=== PATIENT | female | born 1985 | race African-American/Black ===

== ENCOUNTER 2016-10-19 12:00 | Inpatient (IN) | payer OTHER ==
--- NOTE | ~2016-10-19 | PN ---
Unit #: [id number] #: [id number] Patient: LEANN SCHWARTZ [id number] [facility] [address] [place] [address] [id number] MR#: [id number] NAME: LEANN SCHWARTZ ROOM: 30 Age: 31 Sex: F Admission Date: 10/19/2016 : 1985 Attending Physician: Gio Steve M.D. Admitting Physician: Gio Steve M.D. Primary Care Physician: Primary Care Physician Anum SHAFER PROGRESS NOTES DATE 10/22/2016 DISCUSSION Leann complains of night terrors and some irritability in her mood. She continues to have vague suicidal ideation. However, she is able to get up and attend groups on the unit and feels positive about her psychotherapy experience here. She is alert and fully oriented. Her memory and concentration are fair to good. Her racing thoughts have also decreased. ASSESSMENT 1. Bipolar, depressed. 2. PTSD. PLAN We will add prazosin 1 mg at bedtime for night terrors and provide larger portion entrees. Dictated by... Gio Steve M.D. [facility]/michael TD: 10/24/2016 22:52 JOB #: [id number] [facility] PROGRESS NOTES Page 1 of 1 X Gio Steve MD PROGRESS NOTE
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
--- NOTE | ~2016-10-19 | HP ---
Unit #: [id number] #: [id number] Patient: LEANN SCHWARTZ [id number] [place] [address] [id number] I MR#: [id number] NAME: LEANN SCHWARTZ ROOM: 30 Age: 31 Sex: F Admission Date: 10/19/2016 : 1985 Attending Physician: Gio Steve M.D. Admitting Physician: Gio Steve M.D. Primary Care Physician: Primary Care Physician No HISTORY AND PHYSICAL HISTORY OF PRESENT ILLNESS Leann is a 31 year old admitted to [address] [place] [address] with increased anxiety and anger issues. PAST MEDICAL HISTORY Nothing significant. PAST SURGICAL HISTORY Nothing reported. ALLERGIES No known drug allergies. SOCIAL HISTORY Smokes 1 pack per day. Drinks alcohol on occasion. Admits to using marijuana daily. FAMILY HISTORY Medically noncontributory. REVIEW OF SYSTEMS CONSTITUTIONAL: No fever or chills. HEENT: Denies any sore throat, ear pain or runny nose. CARDIOVASCULAR: Denies chest pain, irregular heart rhythm or palpitations. CHEST: Denies shortness of breath or cough. No hemoptysis. GASTROINTESTINAL: Denies nausea, vomiting, diarrhea or chronic constipation. ENDOCRINE: Denies history of increased thirst or urination. No recent significant weight loss or gain. GENITOURINARY: Denies dysuria, frequency, or hematuria. SKIN: Denies any rashes. HEMATOLOGIC: Denies history of increased bleeding or bruising. MUSCULOSKELETAL: Denies any hot, swollen joints. No generalized muscle pain. NEUROLOGIC: Denies problems with vision or speech. No frequent, severe headaches. No numbness, tingling or weakness in any extremities. Denies loss of bladder or bowel control. CURRENT MEDICATIONS 1. Seroquel 400 mg q.h.s. 2. Vistaril p.r.n. 3. Milk of Magnesia p.r.n. 4. Maalox p.r.n. Unit #: [id number] #: [id number] Patient: LEANN SCHWARTZ 5. Tylenol p.r.n. 6. Multivitamin 1 daily. 7. Zoloft 50 mg daily. 8. Nicotine patch 14 mg daily. PHYSICAL EXAMINATION GENERAL: Alert, well-nourished, in no apparent distress. VITAL SIGNS: Blood pressure 120/70, heart rate 88, respirations 16, temperature 98.6. WEIGHT: 150. HEIGHT: 4 feet 10 inches. SKIN: Warm and dry without rash or lesion. HEENT: Normocephalic. TMs not viewed. Oral and nasal passages clear. Conjunctivae clear. PERRLA. EOMs intact. NECK: Supple without lymphadenopathy or thyromegaly. HEART: Regular rate and rhythm without murmur. LUNGS: Clear. ABDOMEN: Soft, nontender. : Not done. EXTREMITIES: No evidence of cyanosis, clubbing or edema. Moves all without focal deficit. NEUROLOGICAL: Grossly within normal limits. Cranial Nerves: II: Visual benítez are intact. III, IV AND : Extraocular movements are intact. Pupils are equal, round and reactive to light. V: Facial sensation is grossly normal. VII: Facial movements and expression are normal. VIII: Auditory acuity grossly intact. IX, X: Uvula is midline. Phonation is normal. XI: Patient shrugs shoulders and turns head normally. XII: Tongue protrudes in the midline. Sensory and Motor Function: Sensory and motor sensation is grossly normal. Motor: moves all extremities well. Coordination: Gait is normal. Deep Tendon Reflexes: Intact. IMPRESSION Psychiatric admission. RECOMMENDATIONS PSYCHIATRIC: Per psychiatrist. MEDICAL: See no contraindications to participate in facility's activities. MEDICAL PROGNOSIS Good. MEDICAL CONDITION Stable. Dictated by... Eulalia Grimaldo P.A.-C. for [facility]/michael TD: 10/20/2016 16:15 JOB #: [id number] Unit #: [id number] #: [id number] Patient: LEANN SCHWARTZ HISTORY AND PHYSICAL Page 1 of 1 X Eulalia Grimaldo HISTORY AND PHYSICAL
--- NOTE | ~2016-10-19 | PN ---
Unit #: [id number] #: [id number] Patient: AGUSTIN SCHWARTZ [id number] [facility] [address] [place] [address] [id number] MR#: [id number] NAME: AGUSTIN SCHWARTZ ROOM: 30 Age: 31 Sex: F Admission Date: 10/19/2016 : 1985 Attending Physician: Gio Steve M.D. Admitting Physician: Gio Steve M.D. Primary Care Physician: Primary Care Physician Anum BATISTA NOTES DATE OF SERVICE: 10/21/2016 DISCUSSION Isabelle is compliant with medications. She complains of some sedation and says that she is deliberately isolating herself from peers and staff due to her irritability. Her mood remains irritable and depressed with a congruent affect. She is alert and fully oriented. Her memory and concentration are fair to good. Her thought processes were goal directed with no evidence of psychosis, although she does report ongoing nightmares related to posttraumatic symptoms. She continues to report suicidal ideation. ASSESSMENT Bipolar depressed, posttraumatic stress disorder. PLAN Continue current treatment plan and hospital precautions. Dictated by... Gio Steve M.D. [facility]/pooja TD: 10/23/2016 18:47 JOB #: [id number] [facility] PROGRESS NOTES Page 1 of 1 X Gio Steve MD PROGRESS NOTE
[2016-10-20 09:44] LABS: BASOPHIL% 0.5 % (0-2.5); EOSINOPHIL# 0.1 X10e3 (0-0.7); EOSINOPHIL% 1.5 % (0.0-7.0); HEMATOCRIT 35.7 % (35.0-45.0); HEMOGLOBIN 11.5 gm/dL (12.0-16.0); LYMPHOCYTE# 1.7 X10e3 (1.0-3.5); LYMPHOCYTE% 40.2 % (17.0-45.0); MEAN CELL VOLUME 96.6 FL (83-96); MEAN CORPUSCULAR HEMOGLOBIN 31.2 PG (28-34); MEAN CORPUSCULAR HGB CONC 32.3 g/dL (30-36); MEAN PLATELET VOLUME 8.1 FL (6.5-11.5); MONOCYTE# 0.4 X10e3 (0-1.0); MONOCYTE% 9.3 % (3.0-12.0); NEUTROPHIL# 2.1 X10e3 (1.5-7.1); NEUTROPHIL% 48.5 % (40-75); PLATELET COUNT 308 X10e3 (140-420); RED CELL DISTRIBUTION WIDTH 14.1 % (11.0-15.5); WHITE BLOOD COUNT 4.3 X10e3 (4.0-10.5)
[2016-10-20 09:56] LABS: DIFF IND NO
[2016-10-20 10:29] LABS: ALBUMIN SERUM 3.6 g/dL (3.5-5.0); BILIRUBIN,TOTAL 0.6 mg/dL (0.2-2.0); BUN/CREATININE RATIO 21.66; CALCIUM SERUM 8.9 mg/dL (8.4-10.2); CREATININE SERUM 0.6 mg/dL (0.6-1.4); GLOM FILT RATE Estimated 138.8 mL/min (>60); POTASSIUM 4.6 mmol/L (3.5-5.1); PROTEIN TOTAL SERUM 6.3 g/dL (6.0-8.3)
[2016-10-20 10:30] LABS: THYROID STIMULATING HORMONE 1.42 uIU/ml (0.34-5.60)
[2016-10-20 10:37] LABS: FREE THYROXIN (T4) 0.73 ng/dL (0.58-1.64)
== END 2016-10-23 11:30 | disposition home or self-care (01) | DRG 885 ==
LOC: P1S 16:13
PROVIDERS: Psychiatry & Neurology Psychiatry
DX: F31.30 Bipolar disorder, current episode depressed, mild or moderate severity, unspecified (principal); F41.9 Anxiety disorder, unspecified; F43.10 Post-traumatic stress disorder, unspecified
CPT/HCPCS: 80053; 84439; 84443; 84703; 85025

== ENCOUNTER 2016-11-06 16:45 | Inpatient (IN) | payer OTHER ==
--- NOTE | ~2016-11-06 | PN ---
Unit #: [id number] #: [id number] Patient: AGUSTIN SCHWARTZ [id number] [facility] [address] [place] [address] [id number] I MR#: [id number] NAME: AGUSTIN SCHWARTZ ROOM: [facility] Age: 31 Sex: F Admission Date: 11/06/2016 : 1985 Attending Physician: Gio Steve M.D. Admitting Physician: Gio Steve M.D. Primary Care Physician: Primary Care Physician No SONI PROGRESS NOTES DATE November 08, [address] Gio Steve DISCUSSION This patient was seen and evaluated on November 08, 2016. She is doing quite well. She is attending groups and unit activities. She denies any SI or HI and contracts for safety. The patient denies any withdrawal symptoms from her occasional marijuana abuse. She is pleasant and cooperative during the interaction. She will meet with her primary psychiatrist tomorrow, Dr. tSeve. Dictated by... Jerry España/ayir TD: 11/10/2016 09:50 JOB #: [id number] [facility] PROGRESS NOTES Page 1 of 1 X Asha Monk PROGRESS NOTE
--- NOTE | ~2016-11-06 | PN ---
Unit #: [id number] #: [id number] Patient: LEANN SCHWARTZ [id number] [facility] [address] [place] [address] [id number] MR#: [id number] NAME: LEANN SCHWARTZ ROOM: [facility] Age: 31 Sex: F Admission Date: 11/06/2016 : 1985 Attending Physician: Gio Steve M.D. Admitting Physician: Gio Steve M.D. Primary Care Physician: Primary Care Physician Anum SHAFER PROGRESS NOTES DATE OF SERVICE: 11/09/2016 DISCUSSION Leann is irritable somewhat and demanding today, stating that she wants to be "transferred of this unit and back to [address] [place] [address]." I told her that this was not going to be therapeutically appropriate for her, and may not be possible anyway. She continues to be off medications and much of her complaints are about psychosocial which is including conflict with others at [facility]. She insists that she has to "either go to their drug program, or go back to [place]." Although she denies having family or any other support in the [place] area. She is irritable in mood, but is nonpsychotic. ASSESSMENT Bipolar, depressed; cannabis dependence; intrauterine . PLAN At this point, we are going to continue with her hospitalization and continued to use psychotherapy as a primary treatment modality. She is agreeable to remain on her current unit. Dictated by... Gio Steve M.D. [facility]/pooja TD: 11/10/2016 05:07 JOB #: [id number] [facility] PROGRESS NOTES Page 1 of 1 X Gio Steve MD PROGRESS NOTE
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
--- NOTE | ~2016-11-06 | DS ---
Unit #: [id number] #: [id number] Patient: AGUSTIN SCHWARTZ [id number] [facility] [address] [place] [address] [id number] MR#: [id number] NAME: AGUSTIN SCHWARTZ ROOM: [facility] Age: 31 Sex: F Admission Date: 11/06/2016 : 1985 Discharge Date: 11/10/2016 Attending Physician: Gio Steve M.D. Primary Care Physician: Primary Care Physician No DISCHARGE SUMMARY REASON FOR ADMISSION Paula is a 31-year-old woman, recently discharged from our facility who came back with complaints of depression. She has discovered that she is and has stopped taking all medications. She was living at [facility] and reports a significant amount of conflict with peers there. She did admit to occasional smoking marijuana. She was admitted for stabilization. DIAGNOSTIC STUDIES LABORATORY RESULTS: was confirmed with a quantitative beta-hCG. CBC and CMP were unremarkable. HOSPITAL COURSE The patient was admitted and placed on suicide precautions due to her . Her medications were discontinued and we relied primarily upon psychotherapy activities as a source of treatment. She had some irritability with peers on the unit and at one point, demanded to be transferred back to another unit, which she felt was more appropriate; however, she was able to re-compensate and on the date of discharge, she once again contract for safety in the outpatient setting. DISCHARGE DIAGNOSES AXIS I: Bipolar depressed; history of posttraumatic stress disorder; cannabis abuse; alcohol abuse; cocaine abuse. AXIS II: No diagnosis. AXIS III: Intrauterine , history of heart murmur. AXIS IV: AXIS V: DISCHARGE INSTRUCTIONS Follow up with [facility] for care and with [facility] for long-term mental health services. DISCHARGE MEDICATIONS None. CONDITION AT DISCHARGE Improved. PROGNOSIS Fair to good. Unit #: [id number] #: [id number] Patient: AGUSTIN SCHWARTZ DIET AND ACTIVITY Per primary care doctor. Dictated by... Gio Steve M.D. [facility]/modl TD: 11/11/2016 14:00 JOB #: [id number] DISCHARGE SUMMARY Page 1 of 1 X Gio Steve MD DISCHARGE SUMMARY
--- NOTE | ~2016-11-06 | HP ---
Unit #: [id number] #: [id number] Patient: AGUSTIN SCHWARTZ [id number] [facility] [address] [place] [address] [id number] MR#: [id number] NAME: AGUSTIN SCHWARTZ ROOM: [facility] Age: 31 Sex: F Admission Date: 11/06/2016 : 1985 Attending Physician: Gio Steve M.D. Admitting Physician: Gio Steve M.D. Primary Care Physician: Primary Care Physician No HISTORY AND PHYSICAL The patient is a 31-year-old female admitted to [address] [place] [address] on 11/06/2016 for bipolar and noncompliance with medication. The patient had a recent admission on 10/19/2016 where a history and physical was completed. That history and physical has been reviewed no changes need to be made. Dictated by... Jerry Merchant/mireya TD: 11/09/2016 03:40 JOB #: [id number] HISTORY AND PHYSICAL Page 1 of 1 X MITCH JACKSON APRN X HISTORY AND PHYSICAL
[2016-11-07 11:55] LABS: BASOPHIL% 0.5 % (0-2.5); EOSINOPHIL% 0.9 % (0.0-7.0); HEMATOCRIT 36.8 % (35.0-45.0); LYMPHOCYTE# 1.8 X10e3 (1.0-3.5); LYMPHOCYTE% 34.3 % (17.0-45.0); MEAN CELL VOLUME 96.3 FL (83-96); MEAN CORPUSCULAR HEMOGLOBIN 31.3 PG (28-34); MEAN CORPUSCULAR HGB CONC 32.5 g/dL (30-36); MEAN PLATELET VOLUME 7.9 FL (6.5-11.5); MONOCYTE# 0.4 X10e3 (0-1.0); MONOCYTE% 7.1 % (3.0-12.0); NEUTROPHIL% 57.2 % (40-75); PLATELET COUNT 347 X10e3 (140-420); RED BLOOD COUNT 3.82 X10e (3.90-5.30); RED CELL DISTRIBUTION WIDTH 14.3 % (11.0-15.5); WHITE BLOOD COUNT 5.3 X10e3 (4.0-10.5)
[2016-11-07 11:59] LABS: DIFF IND NO
[2016-11-07 14:34] LABS: BILIRUBIN,TOTAL 0.7 mg/dL (0.2-2.0); BUN/CREATININE RATIO 26.66; CALCIUM SERUM 9.2 mg/dL (8.4-10.2); CREATININE SERUM 0.6 mg/dL (0.6-1.4); GLOM FILT RATE Estimated 138.8 mL/min (>60); POTASSIUM 4.7 mmol/L (3.5-5.1); PROTEIN TOTAL SERUM 6.9 g/dL (6.0-8.3)
[2016-11-07 14:46] LABS: URINE APPEARANCE CLEAR; URINE BILIRUBIN NEG (NEG); URINE BLOOD NEG (NEG); URINE COLOR YELLOW; URINE GLUCOSE NEG (NEG); URINE KETONE NEG (NEG); URINE LEUKOCYTE ESTERASE NEG (NEG); URINE NITRATE NEG (NEG); URINE PROTEIN NEG (NEG); URINE SPECIFIC GRAVITY 1.023 (1.003-1.035); URINE UROBILINOGEN 0.2 MG/DL (NEG)
[2016-11-07 14:56] LABS: AMPHETAMINE NEG (NEG); BARBITURATES NEG (NEG); BENZODIAZEPINES NEG (NEG); COCAINE NEG (NEG); MARIJUANA POS (NEG); OPIATES NEG (NEG); TRICYCLIC ANTIDEPRESSANTS NEG (NEG); U METHADONE NEG (NEG)
== END 2016-11-10 14:30 | DRG 885 ==
LOC: P2L 19:23
PROVIDERS: Psychiatry & Neurology Psychiatry
DX: F31.9 Bipolar disorder, unspecified (principal); F17.210 Nicotine dependence, cigarettes, uncomplicated; F43.10 Post-traumatic stress disorder, unspecified; F12.10 Cannabis abuse, uncomplicated; Z33.1 Pregnant state, incidental
CPT/HCPCS: 80053; 80307; 81003; 84702; 85025